=== PATIENT | female | born 2000 | race Two or more races ===

== ENCOUNTER 2021-03-08 19:19 | Emergency (ER) | payer OTHER ==
[~2021-03-08] VITALS: Ht 157.5 cm; Wt 72.7 kg
[2021-03-08] MEDS ORDERED: LEVO25TA55 PO (19:40)
[2021-03-08] MEDS ORDERED: IV NORMAL SALINE 1000ML BAG 1,000 ML IV ONE (20:00)
[2021-03-08 20:09] LABS: BASO # 0.1 x10^3/uL (0.0-0.2); BASO % 1 % (0-3); EOS # 0.1 x10^3/uL (0.0-0.7); EOS % 1 % (0-3); HEMATOCRIT 45.1 % (36.0-47.0); HEMOGLOBIN 15.7 g/dL (12.0-15.5); LYMPH # 1.5 x10^3/uL (1.0-4.8); LYMPH % 16 % (24-48); MEAN CORPUSCULAR HEMOGLOBIN 31 pg (25-35); MEAN CORPUSCULAR HGB CONC 35 g/dL (31-37); MEAN CORPUSCULAR VOLUME 90 fL (79-100); MONO # 0.8 x10^3/uL (0.0-1.1); MONO % 8 % (0-9); NEUT % 74 % (31-73); PLATELET COUNT 264 x10^3/uL (140-400); RED BLOOD COUNT 4.99 x10^6/uL (3.50-5.40); RED CELL DISTRIBUTION WIDTH 12.8 % (11.5-14.5); WHITE BLOOD COUNT 9.5 x10^3/uL (4.0-11.0)
[2021-03-08 20:13] LABS: BILIRUBIN,URINE NEGATIVE (NEG); CLARITY,URINE CLEAR; COLOR,URINE YELLOW; NITRITE,URINE NEGATIVE (NEG); PROTEIN,URINE NEGATIVE (NEG-TRACE); UROBILINOGEN,URINE 0.2 mg/dL (0.2 mg/dL)
[2021-03-08 20:18] LABS: BACTERIA,URINE FEW /HPF (0-FEW); BARBITURATES NEG (NEG); BENZODIAZEPINES NEG (NEG); CANNABINOIDS POS (NEG); COCAINE POS (NEG); METHADONE NEG (NEG); OPIATES NEG (NEG); PHENCYCLIDINE NEG (NEG); RBC,URINE 0 /HPF (0-2); WBC,URINE OCC /HPF (0-4)
--- NOTE | 2021-03-08 20:21 | PHYS DOC ---
Past Medical History Past Surgical History: No Surgical History (INOCENCIO REYNOSO PAINTER SUPERVISOR) Smoking Status: Never Smoker Alcohol Use: None Social History Narrative: REPORTS MARAJUANA USE APPROX 1 HOUR PRIOR TO WORK (INOCENCIO REYNOSO PAINTER SUPERVISOR) General Adult EDM: Chief Complaint: SYNCOPE HPI: HPI: Patient is a 20 year old female with a history of hypothyroidism who presents to the ED today to be evaluated after having a syncope episode. Patient states she was 5 guys working, she states she had not had anything to eat all day. 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 Patient states she feels dizzy right now. Denies any fever, coughing or congestion. Denies any headache. She states she must have passed out for a very short amount of time. Patient states nobody reported any seizure activity when she passed our neither did she void on herself or bit her tongue. (INOCENCIO REYNOSO PAINTER SUPERVISOR) Review of Systems: Review of Systems: Constitutional: Denies fever or chills. [] Eyes: Denies change in visual acuity. [] HENT: Denies nasal congestion or sore throat. [] Respiratory: Denies cough or shortness of breath. [] Cardiovascular: Denies chest pain or edema. [] GI: Denies abdominal pain, nausea, vomiting, bloody stools or diarrhea. [] : Denies dysuria. [] Musculoskeletal: Denies back pain or joint pain. [] Integument: Denies rash. [] Neurologic: Reports syncope, dizziness. Denies headache, focal weakness or sensory changes. [] Psychiatric: Denies depression or anxiety. [] (INOCENCIO REYNOSO PAINTER SUPERVISOR) Heart Score: C/O Chest Pain: N/A Risk Factors: Risk Factors: DM, Current or recent (<one month) smoker, HTN, HLP, family his tory of CAD, obesity. Risk Scores: Score 0 - 3: 2.5% MACE over next 6 weeks - Discharge Home Score 4 - 6: 20.3% MACE over next 6 weeks - Admit for Clinical Observation Score 7 - 10: 72.7% MACE over next 6 weeks - Early Invasive Strategies (INOCENCIO REYNOSO PAINTER SUPERVISOR) Current Medications: Current Medications Medications (Trade) Dose Ordered Sig/Rafael Start Time Stop Time Status Last Admin Dose Admin Sodium Chloride 1,000 ml @ 1,000 mls/hr 1X ONCE 03/08/21 20:00 03/08/21 20:59 03/08/21 20:14 1,000 MLS/HR (INOCENCIO REYNOSO PAINTER SUPERVISOR) Allergies: Allergies: Allergies Coded Allergies Type Severity Reaction Last Updated Verified No Known Drug Allergies 03/08/21 No (INOCENCIO REYNOSO PAINTER SUPERVISOR) Physical Exam: PE: Constitutional: Well developed, well nourished, no acute distress, non-toxic appearance. [] HENT: Normocephalic, atraumatic, bilateral external ears normal, oropharynx moist, no oral exudates, nose normal. [] Eyes: PERRLA, EOMI, conjunctiva normal, no discharge. [] Neck: Normal range of motion, no tenderness, supple, no stridor. [] Cardiovascular:Heart rate regular rhythm, no murmur [] Lungs & Thorax: Bilateral breath sounds clear to auscultation [] Abdomen: Bowel sounds normal, soft, no tenderness, no masses, no pulsatile mas ses. [] Skin: Warm, dry, no erythema, no rash. [] Back: No tenderness, no CVA tenderness. [] Extremities: No tenderness, no cyanosis, no clubbing, ROM intact, no edema. [] Neurologic: Alert and oriented X 3, normal motor function, normal sensory function, no focal deficits noted. Cranial nerves II through XII intact Psychologic: Affect normal, judgement normal, mood normal. [] (INOCENCIO REYNOSO PAINTER SUPERVISOR) Current Patient Data: Labs: Laboratory Tests Test 03/08/21 19:56 03/08/21 20:05 White Blood Count 9.5 x10^3/uL (4.0-11.0) Red Blood Count 4.99 x10^6/uL (3.50-5.40) Hemoglobin 15.7 g/dL (12.0-15.5) H Hematocrit 45.1 % (36.0-47.0) Mean Corpuscular Volume 90 fL (79-100) Mean Corpuscular Hemoglobin 31 pg (25-35) Mean Corpuscular Hemoglobin Concent 35 g/dL (31-37) Red Cell Distribution Width 12.8 % (11.5-14.5) Platelet Count 264 x10^3/uL (140-400) Neutrophils (%) (Auto) 74 % (31-73) H Lymphocytes (%) (Auto) 16 % (24-48) L Monocytes (%) (Auto) 8 % (0-9) Eosinophils (%) (Auto) 1 % (0-3) Basophils (%) (Auto) 1 % (0-3) Neutrophils # (Auto) 7.0 x10^3/uL (1.8-7.7) Lymphocytes # (Auto) 1.5 x10^3/uL (1.0-4.8) Monocytes # (Auto) 0.8 x10^3/uL (0.0-1.1) Eosinophils # (Auto) 0.1 x10^3/uL (0.0-0.7) Basophils # (Auto) 0.1 x10^3/uL (0.0-0.2) POC Urine HCG, Qualitative Hcg negative (Negative) Laboratory Tests 03/08/21 19:56 Vital Signs: Vital Signs Date Time Temp Pulse Resp B/P (MAP) Pulse Ox O2 Delivery O2 Flow Rate FiO2 03/08/21 19:39 98.0 101 18 108/62 (77) 97 Room Air 98.0 (INOCENCIO REYNOSO PAINTER SUPERVISOR) EKG: EK interpreted by Dr. Mccloud sinus rhythm heart rate 79 no STEMI [] (INOCENCIO REYNOSO APRN) Radiology/Procedures: Radiology/Procedures: [] (INOCENCIO REYNOSO APRN) Course & Med Decision Making: Course & Med Decision Making Pertinent Labs and Imaging studies reviewed. (See chart for details) This is a 20-year-old female patient presenting to the ED today to be evaluated after having a syncope episode at work. Patient had not eaten anything all day and passed out around 5 pm Vitals on arrival to the ED temperature 98.0, heart rate 101, respiration 18, bl ood pressure 108/62, O2 sats 97% on room air. CBC, CMP, troponin with no acute findings. UA negative for infection, negative urine test. UDS positive for cocaine and marijuana TSH less than 0.007. Patient states she is supposed to be on thyroid medicine but she does not take it. She states she has the pills at home. Encourage patient to take her thyroid medicine and follow-up with her own PCP. Discharge to home. Also encouraged to take 3 meals at least every day and not go for too long without eating. (INOCENCIO REYNOSO APRN) Course & Med Decision Making I was the Attending physician on the above date of service of this patient. This patient was evaluated, examined, treated, and dispositioned from the emergency department by the mid-level practitioner. Although I was working at the time , no assistance was requested. Electronically signed, Mila Mccloud DO (MILA MCCLOUD DO) Martha Disclaimer: Dragxin Disclaimer: This electronic medical record was generated, in whole or in part, using a voice recognition dictation system. (INOCENCIO REYNOSO APRN) Departure Departure Impression: Primary Impression: Syncope Qualified Codes: R55 - Syncope and collapse Additional Impressions: Marijuana use Cocaine use Hypothyroidism Qualified Codes: E03.9 - Hypothyroidism, unspecified Disposition: HOME / SELF CARE / HOMELESS Condition: STABLE Referrals: NO PCP (PCP) follow up with your primary care doctor as soon as you can Patient Instructions: Drug Abuse, FAQs, Syncope, Dwsy-[id number] Additional Instructions: You were evaluated in the emergency room after passing out. Your thyroid levels are still low. Please take your thyroid medicine. The rest of your lab work, EKG and chest x-ray were negative for any acute findings. Your drug screen was positive for marijuana and cocaine. Consider not using these drugs or getting h elp for drug use. INOCENCIO REYNOSO APRN Mar 08, 2021 20:21 MILA MCCLOUD DO Mar 09, 2021 01:39
[2021-03-08 20:22] LABS: AMPHETAMINE/METHAMPHETAMINE NEG (NEG)
[2021-03-08 20:22] LABS: CREATININE 0.7 mg/dL (0.6-1.0); GFR 107.8; POTASSIUM 4.1 mmol/L (3.5-5.1)
[2021-03-08 20:27] LABS: ALBUMIN 3.8 g/dL (3.4-5.0); MAGNESIUM 1.8 mg/dL (1.8-2.4); TOTAL BILIRUBIN 0.7 mg/dL (0.2-1.0); TOTAL PROTEIN 7.6 g/dL (6.4-8.2)
[2021-03-08 20:30] VITALS: BP 118/68
--- NOTE | 2021-03-09 00:02 | RAD ---
INDICATION: Reason: syncope / Spl. Instructions: / History: COMPARISON: None. FINDINGS: Single view of chest obtained. Hypoexpanded exam without definite focal airspace consolidation or pulmonary edema. Cardiac silhouette is unremarkable. No gross osseous destructive lesion. IMPRESSION: * No focal airspace consolidation or edema. Electronically signed by: Boaz Monique MD (03/08/2021 11:59 PM) [id number]
--- NOTE | 2021-03-09 07:10 | EKG ---
[facility] [address] [place] [address] Test Date: 2021-03-08 Test Time: 19:47:12 Pat Name: PAIGE FAN Department: Room: Gender: F [employer] Work[employer]: : 2000 Requested By: INOCENCIO REYNOSO Order Number: [id number] Reading MD: Jourdan Belcher Measurements Intervals Lissie Rate: 79 P: -5 AZ: 124 QRS: 39 QRSD: 92 T: 34 QT: 348 QTc: 400 Interpretive Statements SINUS ARRHYTHMIA Electronically Signed On 03-09-2021 12:39:49 CDT by Jourdan Belcher
== END 2021-03-08 21:05 | disposition home or self-care (01) ==
LOC: ER 19:19
DX: R55 Syncope and collapse (principal); F12.90 Cannabis use, unspecified, uncomplicated; F14.90 Cocaine use, unspecified, uncomplicated; E03.9 Hypothyroidism, unspecified
CPT/HCPCS: 36415; 71045; 80053; 80307; 81001; 81025; 83735; 84443; 84484; 85025; 93005; 96360; 99285; J7030

== ENCOUNTER 2021-06-11 15:31 | Emergency (ER) | payer OTHER ==
[~2021-06-11] VITALS: Ht 157.5 cm; Wt 88.9 kg
[~2021-06-11 15:31] MED LIST: LEVO25TA55 PO
--- NOTE | 2021-06-11 19:58 | PHYS DOC ---
Past Medical History Additional Past Medical Histor: STATES SHE HAD A LIVER ISSUE A CHILD AND HAD A BLOOD TRANSFUSION AT 4YO Past Surgical History: No Surgical History Smoking Status: Current Every Day Smoker Alcohol Use: None General Adult EDM: Chief Complaint: ABDOMINAL PAIN HPI: HPI: Patient is a 20 year old female who presents with 2 weeks of left lower abdominal pain that sharp that occurs mostly in the morning but also she states that it can happen anytime throughout the day will cause her to vomit. She states also at times when she has a sharp pain she has reached the bathroom and had diarrhea. She denies any blood in her stools or in her vomit. She states she supposed to be taking thyroid medication but has not for quite some time. Patient also has a " liver problem when she was 4 and required a blood transfusion". Patient states she does not know exactly what was going on then. Currently she has no pain. She denies shortness of breath, chest pain, fever, urinary symptoms, vaginal discharge, dizziness, headache, cough, numbness or tingling, focal weakness. Review of Systems: Review of Systems: Constitutional: Denies fever or chills. [] Eyes: Denies change in visual acuity. [] HENT: Denies nasal congestion or sore throat. [] Respiratory: Denies cough or shortness of breath. [] Cardiovascular: Denies chest pain or edema. [] GI: + Intermittent abdominal pain, + intermittent nausea, + intermittent vomiting, denies bloody stools or + intermittent diarrhea. [] : Denies dysuria. [] Musculoskeletal: Denies back pain or joint pain. [] Integument: Denies rash. [] Neurologic: Denies headache, focal weakness or sensory changes. [] Endocrine: Denies polyuria or polydipsia. [] Lymphatic: Denies swollen glands. [] Psychiatric: Denies depression or anxiety. [] Heart Score: C/O Chest Pain: No Allergies: Allergies: Allergies Coded Allergies Type Severity Reaction Last Updated Verified No Known Drug Allergies 03/08/21 No Physical Exam: PE: Constitutional: Well developed, well nourished, no acute distress, non-toxic appearance. [] HENT: Normocephalic, atraumatic, bilateral external ears normal, oropharynx moist, no oral exudates, nose normal. [] Eyes: PERRLA, EOMI, conjunctiva normal, no discharge. [] Neck: Normal range of motion, no tenderness, supple, no stridor. [] Cardiovascular:Heart rate regular rhythm, no murmur [] Lungs & Thorax: Bilateral breath sounds clear to auscultation [] Abdomen: Bowel sounds normal, soft, no tenderness, no masses, no pulsatile masses. [] Skin: Warm, dry, no erythema, no rash. [] Back: No tenderness, no CVA tenderness. [] Extremities: No tenderness, no cyanosis, no clubbing, ROM intact, no edema. [] Neurologic: Alert and oriented X 3, normal motor function, normal sensory function, no focal deficits noted. [] Psychologic: Affect normal, judgement normal, mood normal. [] Normal physical exam Current Patient Data: Vital Signs: Vital Signs Date Time Temp Pulse Resp B/P (MAP) Pulse Ox O2 Delivery O2 Flow Rate FiO2 06/11/21 17:50 97.7 65 16 124/70 (88) 100 Room Air 97.7 EKG: EKG: [] Radiology/Procedures: Radiology/Procedures: [] Impression: [facility] [address] [place] [address] IMAGING REPORT Signed PATIENT: PAIGE FAN LACCOUNT: [id number] : 2000 LOCATION: ER AGE: 20 SEX: F EXAM STATUS: REG ER ORD. PHYSICIAN: BALJIT SAUNDERS APRN REASON: left lower abdominal pain, vomiting, diarrhea, omni 300 75 ml iv PROCEDURE: CT ABD PELV W/ IV CONTRST ONLY Exam: CT of abdomen and pelvis with contrast INDICATION: Left lower abdominal pain, vomiting, diarrhea TECHNIQUE: Sequential axial images through the abdomen and pelvis obtained following the administration of 75 mL of Isovue-370 IV contrast. Sagittal and coronal reformatted images were reconstructed from the axial data and reviewed. Exposure: One or more of the following in the visualized dose reduction techniques were utilized for this examination: 1. Automated exposure control 2. Adjustment of the MA and/or KV according to patient size 3. Use of iterative of reconstructive technique Comparisons: None FINDINGS: Heart size is normal. No pericardial effusion. Visualized lung bases are clear. No pleural effusion. Liver, spleen, pancreas, gallbladder and adrenals are unremarkable. No perinephric inflammation or hydronephrosis. No renal or ureteral calculi are identified. Bladder is partially distended and not well evaluated. Uterus is not enlarged. No abnormal adnexal mass. Large and small bowel are unremarkable. Appendix is normal. No free intra- abdominal air or fluid. No obstruction. Abdominal aorta has normal course and caliber. Abdominal vasculature is seen. No enlarged intra-abdominal lymph nodes are identified. No suspicious osseous lesions or acute fractures. IMPRESSION: No acute process identified within the abdomen or pelvis. Electronically signed by: Edgar Herron MD (06/11/2021 9:30 PM) [facility] DICTATED and SIGNED BY: EDGAR HERRON MD DATE: 06/11/[id number] 0 Course & Med Decision Making: Course & Med Decision Making Pertinent Labs and Imaging studies reviewed. (See chart for details) See HPI. Alert and oriented x4. Ambulatory steady gait. Skin pink warm and dry. No CVA tenderness. Abdomen is soft and nontender. Vital signs within normal limits. [] Dragon Disclaimer: DragRossolini Disclaimer: This electronic medical record was generated, in whole or in part, using a voice recognition dictation system. Departure Departure Impression: Primary Impression: Marijuana use Additional Impressions: Abdominal pain Qualified Codes: R10.32 - Left lower quadrant pain Vomiting Qualified Codes: R11.2 - Nausea with vomiting, unspecified Diarrhea Qualified Codes: R19.7 - Diarrhea, unspecified Disposition: 01 HOME / SELF CARE / HOMELESS Condition: STABLE Referrals: NO PCP (PCP) Patient Instructions: Abdominal Pain (Nonspecific), Diarrhea, Diet for Diarrhea, Adult, Nausea and Vomiting Additional Instructions: Follow-up with your primary care provider soon as possible. Drink plenty of fluids. If you given running a fever or you cannot keep down fluids return to emergency room. BALJIT SAUNDERS REGISTER IN CHANCERY Jun 11, 2021 19:58
[2021-06-11 20:38] LABS: BASO % 1 % (0-3); EOS # 0.1 x10^3/uL (0.0-0.7); EOS % 1 % (0-3); HEMATOCRIT 48.3 % (36.0-47.0); HEMOGLOBIN 16.9 g/dL (12.0-15.5); LYMPH # 3.1 x10^3/uL (1.0-4.8); LYMPH % 44 % (24-48); MEAN CORPUSCULAR HEMOGLOBIN 31 pg (25-35); MEAN CORPUSCULAR HGB CONC 35 g/dL (31-37); MEAN CORPUSCULAR VOLUME 88 fL (79-100); MONO # 0.7 x10^3/uL (0.0-1.1); MONO % 10 % (0-9); NEUT # 3.2 x10^3/uL (1.8-7.7); NEUT % 45 % (31-73); PLATELET COUNT 244 x10^3/uL (140-400); RED BLOOD COUNT 5.51 x10^6/uL (3.50-5.40); RED CELL DISTRIBUTION WIDTH 13.3 % (11.5-14.5); WHITE BLOOD COUNT 7.1 x10^3/uL (4.0-11.0)
[2021-06-11 20:39] LABS: BILIRUBIN,URINE NEGATIVE (NEG); CLARITY,URINE CLEAR; COLOR,URINE YELLOW; NITRITE,URINE NEGATIVE (NEG); PROTEIN,URINE NEGATIVE (NEG-TRACE); UROBILINOGEN,URINE 0.2 mg/dL (0.2 mg/dL)
[2021-06-11 20:46] LABS: AMPHETAMINE/METHAMPHETAMINE NEG (NEG); BARBITURATES NEG (NEG); BENZODIAZEPINES NEG (NEG); CANNABINOIDS POS (NEG); COCAINE NEG (NEG); METHADONE NEG (NEG); OPIATES NEG (NEG); PHENCYCLIDINE NEG (NEG)
[2021-06-11 20:49] LABS: BACTERIA,URINE 0 /HPF (0-FEW); RBC,URINE 0 /HPF (0-2); WBC,URINE OCC /HPF (0-4)
[2021-06-11 20:55] LABS: CALCIUM 8.8 mg/dL (8.5-10.1); CREATININE 0.6 mg/dL (0.6-1.0); GFR 128.8; POTASSIUM 3.5 mmol/L (3.5-5.1)
[2021-06-11 20:59] LABS: ALBUMIN/GLOBULIN RATIO 0.9 (1.0-1.7); TOTAL BILIRUBIN 0.4 mg/dL (0.2-1.0); TOTAL PROTEIN 8.3 g/dL (6.4-8.2)
[2021-06-11] MEDS: IOHEXOL 300 MG/ML 100ML VIAL. IV ONE (21:11)
[2021-06-11] MEDS ORDERED: CONTRAST GIVEN. MC PRN (21:15)
--- NOTE | 2021-06-11 21:32 | RAD ---
Exam: CT of abdomen and pelvis with contrast INDICATION: Left lower abdominal pain, vomiting, diarrhea TECHNIQUE: Sequential axial images through the abdomen and pelvis obtained following the administrati on of 75 mL of Isovue-370 IV contrast. Sagittal and coronal reformatted images were reconstructed fro m the axial data and reviewed. Exposure: One or more of the following in the visualized dose reduction techniques were utilized for this examination: 1. Automated exposure control 2. Adjustment of the MA and/or KV according to patient size 3. Use of iterative of reconstructive technique Comparisons: None FINDINGS: Heart size is normal. No pericardial effusion. Visualized lung bases are clear. No pleural effusion. Liver, spleen, pancreas, gallbladder and adrenals are unremarkable. No perinephric inflammation or hydronephrosis. No renal or ureteral calculi are identified. Bladder is partially distended and not well evaluated. Uterus is not enlarged. No abnormal adnexal ma ss. Large and small bowel are unremarkable. Appendix is normal. No free intra-abdominal air or fluid. No obstruction. Abdominal aorta has normal course and caliber. Abdominal vasculature is seen. No enlarged intra-abdominal lymph nodes are identified. No suspicious osseous lesions or acute fractures. IMPRESSION: No acute process identified within the abdomen or pelvis. Electronically signed by: Flores Sousa MD (06/11/2021 9:30 PM) [facility]
[2021-06-11] MEDS: IV NORMAL SALINE 1000ML BAG 1,000 ML IV ONE (21:42)
[2021-06-11 22:09] VITALS: BP 141/81
== END 2021-06-11 22:40 | disposition home or self-care (01) ==
LOC: ER 15:31
DX: R10.32 Left lower quadrant pain (principal); R11.2 Nausea with vomiting, unspecified; R19.7 Diarrhea, unspecified; F12.90 Cannabis use, unspecified, uncomplicated; F17.200 Nicotine dependence, unspecified, uncomplicated
CPT/HCPCS: 36415; 74177; 80053; 80307; 81001; 81025; 83690; 85025; 96360; 99285; J7030; Q9967